=== PATIENT | male | born 1970 | race African-American/Black ===

== ENCOUNTER 2024-12-31 12:50 | Inpatient (IN) | payer OTHER ==
[2024-12-31 13:29] VITALS: BMI 19.8
[2024-12-31] MEDS ORDERED: POLYETHYLENE GLYCOL (HEALTHYLAX) 3350 17 GM PACKET PO PRN (13:42)
[2024-12-31] MEDS ORDERED: BENZONATATE 200 MG CAPSULE PO PRN (13:42)
[2024-12-31] MEDS ORDERED: guaiFENesin 600 MG TABLET.ER (FP) PO PRN (13:42)
[2024-12-31] MEDS ORDERED: NICOTINE POLACRILEX 2 MG GUM BUC PRN (13:42)
[2024-12-31] MEDS ORDERED: MAG HYDROX/AL HYDROX/SIMETH 30 ML UNIT-DOSE CUP PO PRN (13:42)
[2024-12-31] MEDS ORDERED: hydrOXYzine PAMOATE 25 MG CAPSULE (FP) PO PRN (13:42)
[2024-12-31] MEDS ORDERED: MAGNESIUM HYDROX 2400MG/30ML ORAL SUSPENSION 30 ML CUP PO PRN (13:42)
[2024-12-31] MEDS ORDERED: BISMUTH SUBSALICYLATE 524 MG/30 ML PO PRN (13:42)
[2024-12-31] MEDS ORDERED: IBUPROFEN 400 MG TABLET (FP) PO PRN (13:42)
[2024-12-31] MEDS ORDERED: NALOXONE (NARCAN) HCL 4 MG/0.1 ML SPRAY NS PRN (13:42)
[2024-12-31] MEDS ORDERED: IBUPROFEN 600 MG TABLET (FP) PO PRN (13:42)
[2024-12-31] MEDS ORDERED: NICOTINE POLACRILEX 2 MG LOZENGE BC PRN (13:42)
[2024-12-31] MEDS ORDERED: METHOCARBAMOL 500 MG TABLET PO PRN (13:42)
[2024-12-31] MEDS ORDERED: ACETAMINOPHEN 325 MG TABLET (FP) PO PRN (13:42)
[2024-12-31] MEDS ORDERED: BENZOCAINE/MENTHOL (CHLORASEPTIC ) LOZENGE MM PRN (13:42)
[2024-12-31] MEDS ORDERED: ONDANSETRON *ODT* 4 MG TABLET SL PRN (13:42)
[2024-12-31] MEDS ORDERED: DICYCLOMINE HCL 10 MG CAPSULE PO PRN (13:42)
[2024-12-31] MEDS ORDERED: LOPERAMIDE HCL 2 MG CAPSULE PO PRN (13:42)
[2024-12-31] MEDS: MELATONIN 5 MG TABLETS PO SCH (22:43)
[2024-12-31] MEDS: THIAMINE 100 MG TABLET PO SCH (22:44)
[2025-01-01 09:02] LABS: HEMATOCRIT 36.2 % (40.1-51.0); HEMOGLOBIN 11.9 g/dL (13.7-17.5); MCHC 32.9 g/dl (32.3-36.5); MEAN CELL VOLUME 72.5 fl (79.0-92.2); MEAN PLT VOLUME 9.9 fl (9.4-12.4); PLATELET COUNT 228 x10^3/uL (163-337); RDW 15.2 % (12.2-16.1)
[2025-01-01 09:05] LABS: CHLORIDE 97 mmol/L (98-107); POTASSIUM 4.6 mmol/L (3.5-5.1); SODIUM 138 mmol/L (136-145)
[2025-01-01 09:12] LABS: ALBUMIN 3.8 g/dl (3.4-5.0); GLUCOSE,RANDOM 131 mg/dL (74-106); SGPT/ALT 23 U/L (13-61)
[2025-01-01 09:13] LABS: CALCIUM 9.3 mg/dL (8.5-10.1)
[2025-01-01 09:14] LABS: ANION GAP 12 mmol/L (4-13); BILIRUBIN,TOTAL 1.4 mg/dL (0.2-1); CO2 29 mmol/L (21-32); TOT PROT 8.3 g/dl (6.4-8.2)
[2025-01-01 09:15] LABS: ALK PHOS 72 U/L (45-117); SGOT/AST 32 U/L (15-37)
[2025-01-01] MEDS: PRENATAL VITAMINS W/ FOLIC ACID TABLET (FP) PO SCH (10:24)
[2025-01-01] MEDS ORDERED: chlordiazePOXIDE HCL 25 MG CAPSULE PO PRN (13:10)
[2025-01-01] MEDS: chlordiazePOXIDE HCL 25 MG CAPSULE PO SCH (16:48)
[2025-01-02 07:11] VITALS: TEMP 97.6
[2025-01-02 13:04] VITALS: BP 98/70; PULSE 86; RESP 18
[2025-01-02] MEDS: FOLIC ACID 1 MG TABLET (FP) PO SCH (13:49)
[2025-01-03] MEDS ORDERED: chlordiazePOXIDE HCL 25 MG CAPSULE PO SCH (05:00)
[2025-01-04] MEDS ORDERED: chlordiazePOXIDE HCL 10 MG CAPSULE PO PRN
[2025-01-04] MEDS ORDERED: chlordiazePOXIDE HCL 10 MG CAPSULE PO SCH (05:00)
[2025-01-05] MEDS ORDERED: chlordiazePOXIDE HCL 10 MG CAPSULE PO SCH (05:00)
[2025-01-06] MEDS ORDERED: chlordiazePOXIDE HCL 10 MG CAPSULE PO ONE (05:00)
== END 2025-01-02 14:45 | disposition home or self-care (01) | DRG 774 ==
LOC: YASAS 12:50 → Y6N 16:54
PROVIDERS: ADMIT Neuromusculoskeletal Medicine & OMM; ATTEND Neuromusculoskeletal Medicine & OMM
PROC: HZ2ZZZZ Detoxification Services for Substance Abuse Treatment (ICD-10-PCS; principal; 2024-12-31)
DX: F10.230 Alcohol dependence with withdrawal, uncomplicated (principal); F14.20 Cocaine dependence, uncomplicated; F12.20 Cannabis dependence, uncomplicated; F17.210 Nicotine dependence, cigarettes, uncomplicated; F19.24 Other psychoactive substance dependence with psychoactive substance-induced mood disorder; H91.93 Unspecified hearing loss, bilateral; R47.9 Unspecified speech disturbances
CPT/HCPCS: 0241U-QW; 36415; 80053; 80305; 80307; 85027; 86780; 93005; 93010